=== PATIENT | male | born 1995 | race Two or more races ===

== ENCOUNTER 2017-11-21 12:05 | Emergency (ER) | payer SELFPAY ==
[~2017-11-21] VITALS: Ht 182.9 cm; Wt 127.0 kg
[2017-11-21 12:17] VITALS: BP 112/60
== END 2017-11-21 14:21 | disposition home or self-care (01) ==
LOC: ER 12:05
DX: S92.191A Other fracture of right talus, initial encounter for closed fracture (principal); S93.401A Sprain of unspecified ligament of right ankle, initial encounter; X50.0XXA Overexertion from strenuous movement or load, initial encounter; Y93.89 Activity, other specified; Y99.8 Other external cause status; Y92.89 Other specified places as the place of occurrence of the external cause
CPT/HCPCS: 29515; 73610